=== PATIENT | female | born 1950 | race Caucasian/White ===

== ENCOUNTER 2019-06-14 13:10 | Day surgery (SDC) | payer MEDICARE, BC ==
[~2019-06-14 13:10] MED LIST: ACET-895 PO; ATOR80TA PO; FURO-149 PO; GABA300C PO; HYDR-4353 PO; HYDR-4383 PO; LACT1CAP26 PO; MELA3TAB39 PO; METO-539 PO; OMEP20CA15 PO; POTA20TA19 PO; VENL-191 PO
[2019-06-14] MEDS ORDERED: LIDOcaine 2% 5ml jelly ONE (14:03)
== END 2019-06-14 14:49 | disposition home or self-care (01) ==
LOC: WOUND CARE 13:10
PROVIDERS: ATTEND Nurse Practitioner
DX: T87.89 Other complications of amputation stump (principal); E11.621 Type 2 diabetes mellitus with foot ulcer; L97.512 Non-pressure chronic ulcer of other part of right foot with fat layer exposed; E11.69 Type 2 diabetes mellitus with other specified complication; M86.172 Other acute osteomyelitis, left ankle and foot; E11.36 Type 2 diabetes mellitus with diabetic cataract; I25.10 Atherosclerotic heart disease of native coronary artery without angina pectoris; E78.5 Hyperlipidemia, unspecified; I25.2 Old myocardial infarction; K21.9 Gastro-esophageal reflux disease without esophagitis; M19.90 Unspecified osteoarthritis, unspecified site; E11.22 Type 2 diabetes mellitus with diabetic chronic kidney disease; I12.9 Hypertensive chronic kidney disease with stage 1 through stage 4 chronic kidney disease, or unspecified chronic kidney disease; N18.3 Chronic kidney disease, stage 3 (moderate); E11.40 Type 2 diabetes mellitus with diabetic neuropathy, unspecified; F32.9 Major depressive disorder, single episode, unspecified; F17.210 Nicotine dependence, cigarettes, uncomplicated; Z79.899 Other long term (current) drug therapy; Z92.21 Personal history of antineoplastic chemotherapy; Z96.653 Presence of artificial knee joint, bilateral; Z71.6 Tobacco abuse counseling; Y83.5 Amputation of limb(s) as the cause of abnormal reaction of the patient, or of later complication, without mention of misadventure at the time of the procedure
CPT/HCPCS: 97597

== ENCOUNTER 2019-06-17 14:30 | Day surgery (SDC) | payer MEDICARE, BC | END 2019-06-17 15:33 | disposition home or self-care (01) | LOC: WOUND CARE 14:30 | PROVIDERS: ATTEND Nurse Practitioner | DX: T87.89 Other complications of amputation stump (principal); E11.621 Type 2 diabetes mellitus with foot ulcer; L97.512 Non-pressure chronic ulcer of other part of right foot with fat layer exposed; E11.69 Type 2 diabetes mellitus with other specified complication; M86.172 Other acute osteomyelitis, left ankle and foot; E11.36 Type 2 diabetes mellitus with diabetic cataract; I25.10 Atherosclerotic heart disease of native coronary artery without angina pectoris; E78.5 Hyperlipidemia, unspecified; I25.2 Old myocardial infarction; K21.9 Gastro-esophageal reflux disease without esophagitis; M19.90 Unspecified osteoarthritis, unspecified site; E11.22 Type 2 diabetes mellitus with diabetic chronic kidney disease; I12.9 Hypertensive chronic kidney disease with stage 1 through stage 4 chronic kidney disease, or unspecified chronic kidney disease; N18.3 Chronic kidney disease, stage 3 (moderate); E11.40 Type 2 diabetes mellitus with diabetic neuropathy, unspecified; F32.9 Major depressive disorder, single episode, unspecified; F17.210 Nicotine dependence, cigarettes, uncomplicated; Z79.899 Other long term (current) drug therapy; Z92.21 Personal history of antineoplastic chemotherapy; Z96.653 Presence of artificial knee joint, bilateral; Z71.6 Tobacco abuse counseling; Y83.5 Amputation of limb(s) as the cause of abnormal reaction of the patient, or of later complication, without mention of misadventure at the time of the procedure | CPT/HCPCS: 97597 ==

== ENCOUNTER 2019-06-21 14:00 | Day surgery (SDC) | payer MEDICARE, BC ==
[2019-06-21] MEDS ORDERED: LIDOcaine 2% 5ml jelly ONE (14:18)
== END 2019-06-21 14:51 | disposition home or self-care (01) ==
LOC: WOUND CARE 14:00
PROVIDERS: ATTEND Nurse Practitioner
DX: T87.89 Other complications of amputation stump (principal); E11.621 Type 2 diabetes mellitus with foot ulcer; L97.512 Non-pressure chronic ulcer of other part of right foot with fat layer exposed; E11.69 Type 2 diabetes mellitus with other specified complication; M86.172 Other acute osteomyelitis, left ankle and foot; E11.36 Type 2 diabetes mellitus with diabetic cataract; I25.10 Atherosclerotic heart disease of native coronary artery without angina pectoris; E78.5 Hyperlipidemia, unspecified; I25.2 Old myocardial infarction; K21.9 Gastro-esophageal reflux disease without esophagitis; M19.90 Unspecified osteoarthritis, unspecified site; E11.22 Type 2 diabetes mellitus with diabetic chronic kidney disease; I12.9 Hypertensive chronic kidney disease with stage 1 through stage 4 chronic kidney disease, or unspecified chronic kidney disease; N18.3 Chronic kidney disease, stage 3 (moderate); E11.40 Type 2 diabetes mellitus with diabetic neuropathy, unspecified; F32.9 Major depressive disorder, single episode, unspecified; F17.210 Nicotine dependence, cigarettes, uncomplicated; Z79.899 Other long term (current) drug therapy; Z92.21 Personal history of antineoplastic chemotherapy; Z96.653 Presence of artificial knee joint, bilateral; Z71.6 Tobacco abuse counseling; Y83.5 Amputation of limb(s) as the cause of abnormal reaction of the patient, or of later complication, without mention of misadventure at the time of the procedure
CPT/HCPCS: 97597

== ENCOUNTER 2019-06-28 13:00 | Day surgery (SDC) | payer MEDICARE, BC ==
[2019-06-28] MEDS ORDERED: LIDOcaine 2% 5ml jelly ONE (13:36)
== END 2019-06-28 14:02 | disposition home or self-care (01) ==
LOC: WOUND CARE 13:00
PROVIDERS: ATTEND Nurse Practitioner
DX: T87.89 Other complications of amputation stump (principal); E11.621 Type 2 diabetes mellitus with foot ulcer; L97.512 Non-pressure chronic ulcer of other part of right foot with fat layer exposed; E11.69 Type 2 diabetes mellitus with other specified complication; M86.172 Other acute osteomyelitis, left ankle and foot; E11.36 Type 2 diabetes mellitus with diabetic cataract; I25.10 Atherosclerotic heart disease of native coronary artery without angina pectoris; E78.5 Hyperlipidemia, unspecified; I25.2 Old myocardial infarction; K21.9 Gastro-esophageal reflux disease without esophagitis; M19.90 Unspecified osteoarthritis, unspecified site; E11.22 Type 2 diabetes mellitus with diabetic chronic kidney disease; I12.9 Hypertensive chronic kidney disease with stage 1 through stage 4 chronic kidney disease, or unspecified chronic kidney disease; N18.3 Chronic kidney disease, stage 3 (moderate); E11.40 Type 2 diabetes mellitus with diabetic neuropathy, unspecified; F32.9 Major depressive disorder, single episode, unspecified; F17.210 Nicotine dependence, cigarettes, uncomplicated; Z79.899 Other long term (current) drug therapy; Z92.21 Personal history of antineoplastic chemotherapy; Z96.653 Presence of artificial knee joint, bilateral; Z71.6 Tobacco abuse counseling; Y83.5 Amputation of limb(s) as the cause of abnormal reaction of the patient, or of later complication, without mention of misadventure at the time of the procedure
CPT/HCPCS: 97597

== ENCOUNTER 2019-07-02 13:39 | Day surgery (SDC) | payer MEDICARE, BC ==
[2019-07-02] MEDS ORDERED: LIDOcaine 2% 5ml jelly ONE (14:00)
== END 2019-07-02 14:41 | disposition home or self-care (01) ==
LOC: WOUND CARE 13:39
PROVIDERS: ATTEND Nurse Practitioner Family
DX: T87.89 Other complications of amputation stump (principal); E11.621 Type 2 diabetes mellitus with foot ulcer; L97.512 Non-pressure chronic ulcer of other part of right foot with fat layer exposed; E11.69 Type 2 diabetes mellitus with other specified complication; M86.172 Other acute osteomyelitis, left ankle and foot; E11.36 Type 2 diabetes mellitus with diabetic cataract; I25.10 Atherosclerotic heart disease of native coronary artery without angina pectoris; E78.5 Hyperlipidemia, unspecified; I25.2 Old myocardial infarction; K21.9 Gastro-esophageal reflux disease without esophagitis; M19.90 Unspecified osteoarthritis, unspecified site; E11.22 Type 2 diabetes mellitus with diabetic chronic kidney disease; I12.9 Hypertensive chronic kidney disease with stage 1 through stage 4 chronic kidney disease, or unspecified chronic kidney disease; N18.3 Chronic kidney disease, stage 3 (moderate); E11.40 Type 2 diabetes mellitus with diabetic neuropathy, unspecified; F32.9 Major depressive disorder, single episode, unspecified; F17.210 Nicotine dependence, cigarettes, uncomplicated; Z79.899 Other long term (current) drug therapy; Z92.21 Personal history of antineoplastic chemotherapy; Z96.653 Presence of artificial knee joint, bilateral; Z71.6 Tobacco abuse counseling; Y83.5 Amputation of limb(s) as the cause of abnormal reaction of the patient, or of later complication, without mention of misadventure at the time of the procedure
CPT/HCPCS: 97597

== ENCOUNTER 2019-07-10 13:05 | Day surgery (SDC) | payer MEDICARE, BC ==
[2019-07-10] MEDS ORDERED: LIDOcaine 2% 5ml jelly ONE (13:16)
== END 2019-07-10 13:44 | disposition home or self-care (01) ==
LOC: WOUND CARE 13:05
PROVIDERS: ATTEND Nurse Practitioner
DX: T87.89 Other complications of amputation stump (principal); E11.621 Type 2 diabetes mellitus with foot ulcer; L97.522 Non-pressure chronic ulcer of other part of left foot with fat layer exposed; E11.69 Type 2 diabetes mellitus with other specified complication; M86.172 Other acute osteomyelitis, left ankle and foot; E11.36 Type 2 diabetes mellitus with diabetic cataract; I25.10 Atherosclerotic heart disease of native coronary artery without angina pectoris; E78.5 Hyperlipidemia, unspecified; I25.2 Old myocardial infarction; K21.9 Gastro-esophageal reflux disease without esophagitis; M19.90 Unspecified osteoarthritis, unspecified site; E11.22 Type 2 diabetes mellitus with diabetic chronic kidney disease; I12.9 Hypertensive chronic kidney disease with stage 1 through stage 4 chronic kidney disease, or unspecified chronic kidney disease; N18.3 Chronic kidney disease, stage 3 (moderate); E11.40 Type 2 diabetes mellitus with diabetic neuropathy, unspecified; F32.9 Major depressive disorder, single episode, unspecified; F17.210 Nicotine dependence, cigarettes, uncomplicated; Z79.899 Other long term (current) drug therapy; Z92.21 Personal history of antineoplastic chemotherapy; Z96.653 Presence of artificial knee joint, bilateral; Z71.6 Tobacco abuse counseling; Y83.5 Amputation of limb(s) as the cause of abnormal reaction of the patient, or of later complication, without mention of misadventure at the time of the procedure
CPT/HCPCS: 97597

== ENCOUNTER 2019-07-17 13:05 | Day surgery (SDC) | payer MEDICARE, BC ==
[2019-07-17] MEDS ORDERED: LIDOcaine 2% 5ml jelly ONE (13:19)
== END 2019-07-17 14:12 | disposition home or self-care (01) ==
LOC: WOUND CARE 13:05
PROVIDERS: ATTEND Nurse Practitioner
DX: T87.89 Other complications of amputation stump (principal); E11.621 Type 2 diabetes mellitus with foot ulcer; L97.522 Non-pressure chronic ulcer of other part of left foot with fat layer exposed; E11.69 Type 2 diabetes mellitus with other specified complication; M86.172 Other acute osteomyelitis, left ankle and foot; E11.36 Type 2 diabetes mellitus with diabetic cataract; I25.10 Atherosclerotic heart disease of native coronary artery without angina pectoris; E78.5 Hyperlipidemia, unspecified; I25.2 Old myocardial infarction; K21.9 Gastro-esophageal reflux disease without esophagitis; M19.90 Unspecified osteoarthritis, unspecified site; E11.22 Type 2 diabetes mellitus with diabetic chronic kidney disease; I12.9 Hypertensive chronic kidney disease with stage 1 through stage 4 chronic kidney disease, or unspecified chronic kidney disease; N18.3 Chronic kidney disease, stage 3 (moderate); E11.40 Type 2 diabetes mellitus with diabetic neuropathy, unspecified; F32.9 Major depressive disorder, single episode, unspecified; F17.210 Nicotine dependence, cigarettes, uncomplicated; Z79.899 Other long term (current) drug therapy; Z92.21 Personal history of antineoplastic chemotherapy; Z96.653 Presence of artificial knee joint, bilateral; Z71.6 Tobacco abuse counseling; Y83.5 Amputation of limb(s) as the cause of abnormal reaction of the patient, or of later complication, without mention of misadventure at the time of the procedure
CPT/HCPCS: 97597

== ENCOUNTER 2019-07-24 13:22 | Outpatient (CLI) | payer MEDICARE, BC | END 2019-07-24 14:25 | disposition home or self-care (01) | LOC: WOUND CARE 13:22 | PROVIDERS: ATTEND Nurse Practitioner | DX: T87.89 Other complications of amputation stump (principal); E11.621 Type 2 diabetes mellitus with foot ulcer; L97.522 Non-pressure chronic ulcer of other part of left foot with fat layer exposed; E11.69 Type 2 diabetes mellitus with other specified complication; M86.172 Other acute osteomyelitis, left ankle and foot; E11.36 Type 2 diabetes mellitus with diabetic cataract; I25.10 Atherosclerotic heart disease of native coronary artery without angina pectoris; E78.5 Hyperlipidemia, unspecified; I25.2 Old myocardial infarction; K21.9 Gastro-esophageal reflux disease without esophagitis; M19.90 Unspecified osteoarthritis, unspecified site; E11.22 Type 2 diabetes mellitus with diabetic chronic kidney disease; I12.9 Hypertensive chronic kidney disease with stage 1 through stage 4 chronic kidney disease, or unspecified chronic kidney disease; N18.3 Chronic kidney disease, stage 3 (moderate); E11.40 Type 2 diabetes mellitus with diabetic neuropathy, unspecified; F32.9 Major depressive disorder, single episode, unspecified; F17.210 Nicotine dependence, cigarettes, uncomplicated; Z79.899 Other long term (current) drug therapy; Z92.21 Personal history of antineoplastic chemotherapy; Z96.653 Presence of artificial knee joint, bilateral; Z71.6 Tobacco abuse counseling; Y83.5 Amputation of limb(s) as the cause of abnormal reaction of the patient, or of later complication, without mention of misadventure at the time of the procedure | CPT/HCPCS: G0463 ==

== ENCOUNTER 2021-05-06 18:46 | Inpatient (IN) | payer MEDICARE, BC ==
[~2021-05-06] VITALS: Ht 154.9 cm; Wt 65.5 kg
[~2021-05-06 18:46] MED LIST changes: +POTA-208 PO; -POTA20TA19 PO
[2021-05-06] MEDS ORDERED: normal saline 1000ML IV soln IV ONE (19:50)
[2021-05-06] MEDS ORDERED: CefTRIAXone 2gm/D5W 50ml BAG 50 ML IV ONE (19:50)
--- NOTE | 2021-05-06 19:55 | NUR ---
BLOOD CULTURES TAKEN.
--- NOTE | 2021-05-06 19:56 | NUR ---
ROZINA GARCIA ASSESSING PT IN ROOM
[2021-05-06 20:02] LABS: BASOPHILS % (AUTO) 0.2 % (0-1); EOSINOPHILS % (AUTO) 0.2 % (0-6); HEMATOCRIT 40.1 % (35.0-45.0); HEMOGLOBIN 13.1 g/dl (12.0-16.0); LYMPHOCYTES # (AUTO) 0.3 X10'3 (1.1-4.8); LYMPHOCYTES % (AUTO) 2.3 % (21-51); MEAN CORPUSCULAR HEMOGLOBIN 28.6 PG (27.0-31.0); MEAN CORPUSCULAR HGB CONC 32.8 g/dL (33.0-36.5); MEAN CORPUSCULAR VOLUME 87.2 FL (78-98); MEAN PLATELET VOLUME 8.6 FL (7.4-10.4); MONOCYTES # (AUTO) 0.8 X10'3 (0-0.9); MONOCYTES % (AUTO) 5.3 % (2-12); NEUTROPHILS # (AUTO) 14.1 X10'3 (1.8-7.7); PLATELET COUNT 254 X10'3 (140-440); RED CELL DISTRIBUTION WIDTH 15.4 % (11.5-14.5); WHITE BLOOD COUNT 15.3 X10'3 (4.5-11.0)
[2021-05-06 20:20] LABS: ALANINE AMINOTRANSFERASE 28 U/L (12-78); ALBUMIN 3.5 G/DL (3.4-5.0); ALKALINE PHOSPHATASE 68 IU/L (46-116); ANION GAP 11 (8-16); ASPARTATE AMINO TRANSFERASE 23 U/L (10-37); BILIRUBIN,TOTAL 0.3 MG/DL (0.1-1.0); BLOOD UREA NITROGEN 28 MG/DL (7-18); BUN/CREATININE RATIO 27.2 (6.6-38.0); CALCIUM 8.8 MG/DL (8.5-10.1); CHLORIDE 101 MMOL/L (99-107); CREATININE 1.03 MG/DL (0.40-0.90); GLUCOSE 116 MG/DL (70-104); POTASSIUM 4.1 MMOL/L (3.5-5.1); SODIUM 136 MMOL/L (135-145); TOTAL CARBON DIOXIDE 23.7 MMOL/L (24-32); eGFR 53 ML/MIN
--- NOTE | 2021-05-06 20:52 | NUR ---
FOUND NICOTINE PATCH ON RIGHT SHOULDER. PT STATES SHE PUT IT ON HERSELF PRIOR TO ARRIVAL.
[2021-05-06 21:02] LABS: CLARITY,URINE SLIGHTLY CLOUDY (Clear); COLOR,URINE YELLOW (Yellow); GLUCOSE, URINE NEGATIVE (Neg); KETONES,URINE NEGATIVE (Neg); LEUKOCYTE ESTERASE ,URINE NEGATIVE (Neg); NITRITES, URINE POSITIVE (Neg); OCCULT BLOOD,URINE NEGATIVE (Neg); PH,URINE 5.5 (4.8-8.0); PROTEIN,URINE TRACE mg/dl (Neg); UROBILINOGEN,URINE 0.2 E.U/dL (0.2-1.0)
[2021-05-06 21:10] LABS: UA COLLECTION TYPE STRAIGHT CATH
[2021-05-06 21:12] LABS: BACTERIA,URINE 3+ /HPF (Neg); FINE GRANULAR CAST 0-3 /LPF (NEGATIVE); MUCUS STRANDS NONE SEEN /LPF (Neg); RBC,URINE 0-2 /HPF (0-2); SQUAMOUS EPITHELIAL CELL,UR FEW /LPF (FEW)
[2021-05-06] MEDS ORDERED: vancomycin/NS 1 GM ADD-VANTAGE 250 ML IV ONE (22:00)
[2021-05-06] MEDS ORDERED: potassium CL 10mEq/100ml bag 100 ML IV PRN (22:25)
[2021-05-06] MEDS ORDERED: magnesium Cl slow-release 64mg tablet PO PRN (22:25)
[2021-05-06] MEDS ORDERED: ondansetron/PF 4mg/2ml inj IV PRN (22:25)
[2021-05-06] MEDS ORDERED: potassium Cl 20 mEq SR tablet PO PRN (22:25)
[2021-05-06] MEDS ORDERED: magnesium 4gm in 100ml NS 100 ML IV PRN (22:25)
[2021-05-06] MEDS ORDERED: magnesium 2GM in 50ml NS 50 ML IV PRN (22:25)
--- NOTE | 2021-05-06 23:14 | NUR ---
Pt observed resting comfortably, vss; see flow chart; medicated per mar; warm blankets provided, son at bs. will cont to monitor.
[2021-05-06] MEDS: normal saline 1000ml 1,000 ML IV SCH (23:22)
[2021-05-06 23:39] LABS: MAGNESIUM 1.1 MG/DL (1.5-2.4); POTASSIUM 3.6 MMOL/L (3.5-5.1)
[2021-05-07 00:20] VITALS: BP 155/79
[2021-05-07] MEDS: acetaminophen 325mg tablet PO PRN (00:22)
[2021-05-07 02:00] VITALS: BP 107/56
[2021-05-07] MEDS: normal saline 1000ml 1,000 ML IV SCH ×2 (03:36→19:05)
[2021-05-07 06:33] LABS: BASOPHILS % (AUTO) 0.1 % (0-1); EOSINOPHILS % (AUTO) 0 % (0-6); HEMATOCRIT 35.4 % (35.0-45.0); HEMOGLOBIN 11.5 g/dl (12.0-16.0); LYMPHOCYTES # (AUTO) 0.4 X10'3 (1.1-4.8); LYMPHOCYTES % (AUTO) 2.9 % (21-51); MEAN CORPUSCULAR HEMOGLOBIN 28.2 PG (27.0-31.0); MEAN CORPUSCULAR HGB CONC 32.4 g/dL (33.0-36.5); MEAN PLATELET VOLUME 8.6 FL (7.4-10.4); MONOCYTES # (AUTO) 0.5 X10'3 (0-0.9); MONOCYTES % (AUTO) 4.1 % (2-12); NEUTROPHILS # (AUTO) 12.2 X10'3 (1.8-7.7); NEUTROPHILS % (AUTO) 92.9 % (42-75); PLATELET COUNT 207 X10'3 (140-440); RED BLOOD COUNT 4.07 X10'6 (4.20-5.60); RED CELL DISTRIBUTION WIDTH 15.7 % (11.5-14.5); WHITE BLOOD COUNT 13.2 X10'3 (4.5-11.0)
--- NOTE | 2021-05-07 06:42 | NUR ---
Problems reprioritized. Patient report given, questions answered & plan of care reviewed with MERLENE MURDOCK.
[2021-05-07 06:43] LABS: ALBUMIN 2.7 G/DL (3.4-5.0); ANION GAP 8 (8-16); BLOOD UREA NITROGEN 19 MG/DL (7-18); CHLORIDE 103 MMOL/L (99-107); CREATININE 0.95 MG/DL (0.40-0.90); GLUCOSE 105 MG/DL (70-104); MAGNESIUM 1.5 MG/DL (1.5-2.4); POTASSIUM 3.4 MMOL/L (3.5-5.1); SODIUM 139 MMOL/L (135-145); TOTAL CARBON DIOXIDE 28.4 MMOL/L (24-32); eGFR 58 ML/MIN
[2021-05-07 07:00] VITALS: BP 118/59
[2021-05-07] MEDS: K and/or MAG REPLACEMENT MC SCH ×2 (08:00→20:11)
[2021-05-07] MEDS ORDERED: IBUP-1986 PO (08:01)
[2021-05-07] MEDS ORDERED: BUPR100T7 PO (08:01)
[2021-05-07] MEDS ORDERED: FENO145T25 PO (08:01)
[2021-05-07] MEDS ORDERED: VENL150C58 PO (08:01)
[2021-05-07] MEDS: CefTRIAXone/D5W-Rocephin 1gm 50 ML IV SCH (10:22)
[2021-05-07 11:00] VITALS: BP 121/63
[2021-05-07] MEDS ORDERED: iohexol 300mg/ml 100ml inj. ONE (12:32)
[2021-05-07 16:00] VITALS: BP 113/59
[2021-05-07 18:00] VITALS: BP 108/70
[2021-05-07] MEDS: potassium Cl 20 mEq SR tablet PO PRN (20:10)
[2021-05-08 02:00] VITALS: BP 124/83
[2021-05-08 06:00] VITALS: BP 148/90
[2021-05-08 06:58] LABS: BASOPHILS % (AUTO) 0.5 % (0-1); EOSINOPHILS # (AUTO) 0.3 X10'3 (0-0.9); EOSINOPHILS % (AUTO) 6.2 % (0-6); HEMATOCRIT 35.7 % (35.0-45.0); HEMOGLOBIN 11.7 g/dl (12.0-16.0); LYMPHOCYTES # (AUTO) 0.3 X10'3 (1.1-4.8); LYMPHOCYTES % (AUTO) 6.1 % (21-51); MEAN CORPUSCULAR HEMOGLOBIN 28.5 PG (27.0-31.0); MEAN CORPUSCULAR HGB CONC 32.7 g/dL (33.0-36.5); MEAN CORPUSCULAR VOLUME 86.9 FL (78-98); MEAN PLATELET VOLUME 8.8 FL (7.4-10.4); MONOCYTES # (AUTO) 0.3 X10'3 (0-0.9); NEUTROPHILS # (AUTO) 3.3 X10'3 (1.8-7.7); NEUTROPHILS % (AUTO) 79.2 % (42-75); PLATELET COUNT 186 X10'3 (140-440); RED CELL DISTRIBUTION WIDTH 15.5 % (11.5-14.5); WHITE BLOOD COUNT 4.1 X10'3 (4.5-11.0)
[2021-05-08 07:08] LABS: ALBUMIN 2.5 G/DL (3.4-5.0); ANION GAP 7 (8-16); BLOOD UREA NITROGEN 13 MG/DL (7-18); BUN/CREATININE RATIO 18.1 (6.6-38.0); CHLORIDE 107 MMOL/L (99-107); CREATININE 0.72 MG/DL (0.40-0.90); GLUCOSE 107 MG/DL (70-104); MAGNESIUM 1.5 MG/DL (1.5-2.4); POTASSIUM 3.4 MMOL/L (3.5-5.1); SODIUM 139 MMOL/L (135-145); TOTAL CARBON DIOXIDE 25.1 MMOL/L (24-32); eGFR 80 ML/MIN
[2021-05-08] MEDS: normal saline 1000ml 1,000 ML IV SCH ×2 (07:35→19:28)
[2021-05-08] MEDS: CefTRIAXone/D5W-Rocephin 1gm 50 ML IV SCH (07:43)
[2021-05-08] MEDS: potassium Cl 20 mEq SR tablet PO PRN ×3 (07:43→19:27)
[2021-05-08] MEDS: acetaminophen 325mg tablet PO PRN (07:44)
[2021-05-08] MEDS: K and/or MAG REPLACEMENT MC SCH ×2 (08:00→19:27)
[2021-05-08 11:00] VITALS: BP 125/68
[2021-05-08] MEDS ORDERED: VANCOMYCIN 1GM/200ML IVPB 200 ML IV SCH ×2 (11:00→23:00)
[2021-05-08] MEDS: nystatin 15 GM powder TP SCH (13:02)
[2021-05-08 15:00] VITALS: BP 149/85
--- NOTE | 2021-05-08 18:14 | NUR ---
Problems reprioritized. Patient report given, questions answered & plan of care reviewed with Viky MURDOCK.
[2021-05-08 22:00] VITALS: BP 152/86
[2021-05-09] MEDS ORDERED: cloNIDine 0.1 mg tablet PO PRN (04:40)
[2021-05-09] MEDS: potassium Cl 20 mEq SR tablet PO PRN (05:16)
[2021-05-09 06:23] LABS: EOSINOPHILS # (AUTO) 0.4 X10'3 (0-0.9); EOSINOPHILS % (AUTO) 10.1 % (0-6); HEMATOCRIT 38.5 % (35.0-45.0); HEMOGLOBIN 12.7 g/dl (12.0-16.0); LYMPHOCYTES # (AUTO) 0.5 X10'3 (1.1-4.8); LYMPHOCYTES % (AUTO) 13.4 % (21-51); MEAN CORPUSCULAR HEMOGLOBIN 28.6 PG (27.0-31.0); MEAN CORPUSCULAR HGB CONC 33.1 g/dL (33.0-36.5); MEAN CORPUSCULAR VOLUME 86.5 FL (78-98); MEAN PLATELET VOLUME 8.5 FL (7.4-10.4); MONOCYTES # (AUTO) 0.4 X10'3 (0-0.9); MONOCYTES % (AUTO) 11.3 % (2-12); NEUTROPHILS # (AUTO) 2.4 X10'3 (1.8-7.7); NEUTROPHILS % (AUTO) 64.2 % (42-75); PLATELET COUNT 203 X10'3 (140-440); RED BLOOD COUNT 4.46 X10'6 (4.20-5.60); RED CELL DISTRIBUTION WIDTH 15.9 % (11.5-14.5); WHITE BLOOD COUNT 3.7 X10'3 (4.5-11.0)
--- NOTE | 2021-05-09 06:49 | NUR ---
Problems reprioritized. Patient report given, questions answered & plan of care reviewed with Ivana MURDOCK.
[2021-05-09] MEDS: nystatin 15 GM powder TP SCH (07:45)
[2021-05-09] MEDS: K and/or MAG REPLACEMENT MC SCH (08:00)
[2021-05-09] MEDS ORDERED: metoprolol succinate 25mg (24-HOUR) SR. Tablet PO SCH (08:00)
[2021-05-09] MEDS ORDERED: amox tr/potassium clavulanate 875/125mg TAB PO ONE (08:15)
[2021-05-09 08:32] LABS: ALBUMIN 2.8 G/DL (3.4-5.0); BLOOD UREA NITROGEN 11 MG/DL (7-18); BUN/CREATININE RATIO 17.2 (6.6-38.0); CALCIUM 8.3 MG/DL (8.5-10.1); CREATININE 0.64 MG/DL (0.40-0.90); GLUCOSE 101 MG/DL (70-104); MAGNESIUM 1.6 MG/DL (1.5-2.4); eGFR > 90 ML/MIN
[2021-05-09] MEDS: normal saline 1000ml 1,000 ML IV SCH (08:35)
[2021-05-09] MEDS ORDERED: AMOX-580 PO ×2 (09:26)
[2021-05-09] MEDS ORDERED: AMPI500C65 PO (09:40)
--- NOTE | 2021-05-09 11:50 | NUR ---
Discharged patient home, in stable condition, accompanied by . Discharge instructions provided and patient verbalized understanding.
[2021-05-09 12:18] LABS: POTASSIUM 3.9 MMOL/L (3.3-5.1)
[2021-05-09] MEDS ORDERED: VANCOMYCIN LEVEL IV ONE (22:30)
== END 2021-05-09 11:52 | disposition home or self-care (01) | DRG 871 ==
LOC: ER 18:46 → ED HOLD 22:25 → PCU 3S 05-07 00:14
PROVIDERS: ADMIT Internal Medicine; ATTEND Family Medicine
PROC: BW281ZZ Computerized Tomography (CT Scan) of Head using Low Osmolar Contrast (ICD-10-PCS; principal; 2021-05-07)
DX: A41.81 Sepsis due to Enterococcus (principal); G93.41 Metabolic encephalopathy; J18.9 Pneumonia, unspecified organism; N39.0 Urinary tract infection, site not specified; N17.9 Acute kidney failure, unspecified; C91.11 Chronic lymphocytic leukemia of B-cell type in remission; Z20.822 Contact with and (suspected) exposure to COVID-19; R31.9 Hematuria, unspecified; E78.5 Hyperlipidemia, unspecified; F32.A Depression, unspecified; K21.9 Gastro-esophageal reflux disease without esophagitis; E83.42 Hypomagnesemia; E87.6 Hypokalemia; F17.200 Nicotine dependence, unspecified, uncomplicated; I10 Essential (primary) hypertension; Z85.72 Personal history of non-Hodgkin lymphomas; Z86.14 Personal history of Methicillin resistant Staphylococcus aureus infection; Z88.8 Allergy status to other drugs, medicaments and biological substances; Z79.899 Other long term (current) drug therapy
CPT/HCPCS: 36415; 70470; 71045; 80048; 80053; 81001; 83605; 83735; 84132; 84145; 85025; 87040; 87077; 87081; 87088; 87186; 87635; 99285; C9803; G0378; J0696; J3370; J7030; Q9967

== ENCOUNTER 2022-10-20 13:58 | Inpatient (IN) | payer MEDICARE, BC ==
[~2022-10-20] VITALS: Ht 160 cm; Wt 75.0 kg
[~2022-10-20 13:58] MED LIST changes: -ACET-895 PO; +ATOR-2 PO; -ATOR80TA PO; +BUPR100T15 PO; +CEFD300C21 PO; +FENO145T25 PO; -FURO-149 PO; -GABA300C PO; -HYDR-4353 PO; -HYDR-4383 PO; -LACT1CAP26 PO; +LEVO-65 PO; -MELA3TAB39 PO; -OMEP20CA15 PO; -POTA-208 PO; -VENL-191 PO; +VENL150C58 PO
[2022-10-20] MEDS ORDERED: normal saline 1000ML IV soln IV ONE (14:20)
[2022-10-20] MEDS ORDERED: CefTRIAXone 2gm/D5W 50ml BAG 50 ML IV ONE (14:20)
[2022-10-20 15:00] LABS: BASOPHILS % (AUTO) 0.5 % (0-1); EOSINOPHILS % (AUTO) 0.6 % (0-6); HEMATOCRIT 41.9 % (35.0-45.0); HEMOGLOBIN 13.8 g/dl (12.0-16.0); LYMPHOCYTES # (AUTO) 0.7 X10'3 (1.1-4.8); LYMPHOCYTES % (AUTO) 9.6 % (21-51); MEAN CORPUSCULAR HEMOGLOBIN 28.3 PG (27.0-31.0); MEAN CORPUSCULAR VOLUME 85.7 FL (78-98); MEAN PLATELET VOLUME 8.6 FL (7.4-10.4); MONOCYTES # (AUTO) 0.6 X10'3 (0-0.9); MONOCYTES % (AUTO) 7.4 % (2-12); NEUTROPHILS # (AUTO) 6.4 X10'3 (1.8-7.7); NEUTROPHILS % (AUTO) 81.9 % (42-75); PLATELET COUNT 201 X10'3 (140-440); RED BLOOD COUNT 4.89 X10'6 (4.20-5.60); RED CELL DISTRIBUTION WIDTH 16.9 % (11.5-14.5); WHITE BLOOD COUNT 7.8 X10'3 (4.5-11.0)
[2022-10-20 15:22] LABS: ALANINE AMINOTRANSFERASE 20 U/L (12-78); ALBUMIN 3.7 G/DL (3.4-5.0); ALBUMIN/GLOBULIN RATIO 1.2 (1.1-1.5); ALKALINE PHOSPHATASE 109 IU/L (46-116); ANION GAP 14 (8-16); ASPARTATE AMINO TRANSFERASE 26 U/L (10-37); BILIRUBIN,TOTAL 0.6 MG/DL (0.1-1.0); BLOOD UREA NITROGEN 21 MG/DL (7-18); BUN/CREATININE RATIO 29.6 (10.0-20.0); CALCIUM 9.3 MG/DL (8.5-10.1); CHLORIDE 106 MMOL/L (99-107); CREATININE 0.71 MG/DL (0.40-0.90); GLUCOSE 114 MG/DL (70-104); MAGNESIUM 1.7 MG/DL (1.5-2.4); POTASSIUM 3.7 MMOL/L (3.5-5.1); SODIUM 143 MMOL/L (135-145); TOTAL CARBON DIOXIDE 23.1 MMOL/L (24-32); TOTAL PROTEIN 6.9 G/DL (6.4-8.2); eCRCL 59 ML/MIN; eGFR 81 ML/MIN
[2022-10-20] MEDS ORDERED: CefTRIAXone/D5W-Rocephin 1gm 50 ML IV ONE (16:10)
[2022-10-20 16:28] LABS: BILIRUBIN,URINE NEGATIVE (Neg); CLARITY,URINE CLOUDY (Clear); COLOR,URINE YELLOW (Yellow); GLUCOSE, URINE NEGATIVE (Neg); KETONES,URINE TRACE mg/dl (Neg); LEUKOCYTE ESTERASE ,URINE NEGATIVE (Neg); NITRITES, URINE POSITIVE (Neg); OCCULT BLOOD,URINE SMALL (Neg); PROTEIN,URINE >=300 mg/dl (Neg); UROBILINOGEN,URINE 0.2 E.U/dL (0.2-1.0)
[2022-10-20 16:30] LABS: UA COLLECTION TYPE FOLEY CATH
[2022-10-20 16:35] LABS: BACTERIA,URINE 4+ /HPF (Neg); SQUAMOUS EPITHELIAL CELL,UR FEW /LPF (FEW)
[2022-10-20 16:36] LABS: RBC,URINE 0-2 /HPF (0-2); WBC CLUMPS,URINE FEW /HPF (NEGATIVE)
[2022-10-20] MEDS ORDERED: metoprolol tartrate 50mg tablet PO ONE (16:40)
[2022-10-20] MEDS ORDERED: ondansetron/PF 4mg/2ml inj IV PRN (16:45)
[2022-10-20] MEDS ORDERED: potassium Cl 20 mEq SR tablet PO PRN ×2 (16:45)
[2022-10-20] MEDS ORDERED: magnesium 4gm in 100ml NS 100 ML IV PRN (16:45)
[2022-10-20] MEDS ORDERED: potassium Cl 40MEQ/1/2NS 520ml 520 ML IV PRN (16:45)
[2022-10-20] MEDS ORDERED: acetaminophen 325mg tablet PO PRN (16:45)
[2022-10-20] MEDS ORDERED: magnesium hydroxide 30ml (MOM) UD suspension PO PRN (16:45)
[2022-10-20] MEDS ORDERED: magnesium 2GM in 50ml NS 50 ML IV PRN (16:45)
[2022-10-20] MEDS ORDERED: mag hydrox/Alum hydrox/simeth 30ml oral suspension PO PRN (16:45)
[2022-10-20] MEDS ORDERED: magnesium Cl slow-release 64mg tablet PO PRN (16:45)
[2022-10-20] MEDS ORDERED: lisinopril 10 MG tablet PO ONE (16:50)
--- NOTE | 2022-10-20 18:30 | NUR ---
ASSUMED CARE FROM COLLETTE APONTE. PT HAS DOW IN PLACE FROM PRIOR NURSE. DOW ORDER OBTAINED AND PLACED FROM DR HUITRON.
[2022-10-20] MEDS: normal saline 1000ml 1,000 ML IV SCH (19:33)
[2022-10-20] MEDS: docusate sod 100mg capsule PO SCH (19:59)
--- NOTE | 2022-10-20 20:02 | NUR ---
paged dr manzano regarding continued high bp after po bp medications. awaiting call back.
--- NOTE | 2022-10-20 20:09 | NUR ---
recieved telephone orders from dr manzano for clonidine 0.2mg po once and hydralazine 10mg IV q4 PRN for systolic over 160. per dr, call in 1 hr if bp has not lowered.
[2022-10-20] MEDS ORDERED: cloNIDine 0.1 mg tablet PO SCH (20:10)
[2022-10-20] MEDS ORDERED: cloNIDine 0.1 mg tablet PO ONE (20:10)
[2022-10-20] MEDS: enoxaparin 40mg/0.4ml syringe SQ SCH (21:09)
[2022-10-20] MEDS: hydrALAZINE 20mg/ml inj. IV PRN (21:09)
--- NOTE | 2022-10-20 21:48 | NUR ---
PT CONTINIES TO HOLD DOW IN HAND AND PICK AT LEG SECUREMENT DEVICE. PLACED PT IN SCRUB BOTTOMS TO TRY TO DETER HER FROM PICKING AT CATHETER. PT REPOSITIONED IN BED, NO COMPLAINTS AT THIS TIME.
--- NOTE | 2022-10-21 01:37 | NUR ---
BP STILL HIGH, ADMINISTERED PRN HYDRALAZINE 10 MG
[2022-10-21] MEDS: hydrALAZINE 20mg/ml inj. IV PRN ×2 (01:38→14:49)
[2022-10-21 05:45] LABS: BASOPHILS % (AUTO) 0.2 % (0-1); EOSINOPHILS % (AUTO) 0.1 % (0-6); HEMATOCRIT 43.1 % (35.0-45.0); HEMOGLOBIN 14.2 g/dl (12.0-16.0); LYMPHOCYTES # (AUTO) 0.7 X10'3 (1.1-4.8); LYMPHOCYTES % (AUTO) 7.8 % (21-51); MEAN CORPUSCULAR HGB CONC 33.1 g/dL (33.0-36.5); MEAN CORPUSCULAR VOLUME 84.6 FL (78-98); MEAN PLATELET VOLUME 8.5 FL (7.4-10.4); MONOCYTES # (AUTO) 0.7 X10'3 (0-0.9); MONOCYTES % (AUTO) 7.8 % (2-12); NEUTROPHILS # (AUTO) 7.8 X10'3 (1.8-7.7); NEUTROPHILS % (AUTO) 84.1 % (42-75); PLATELET COUNT 215 X10'3 (140-440); RED BLOOD COUNT 5.09 X10'6 (4.20-5.60); RED CELL DISTRIBUTION WIDTH 16.5 % (11.5-14.5); WHITE BLOOD COUNT 9.3 X10'3 (4.5-11.0)
[2022-10-21] MEDS: normal saline 1000ml 1,000 ML IV SCH ×2 (06:05→19:25)
[2022-10-21 07:39] LABS: ALANINE AMINOTRANSFERASE 21 U/L (12-78); ALBUMIN 3.4 G/DL (3.4-5.0); ALKALINE PHOSPHATASE 109 IU/L (46-116); ANION GAP 17 (8-16); ASPARTATE AMINO TRANSFERASE 36 U/L (10-37); BILIRUBIN,TOTAL 0.6 MG/DL (0.1-1.0); BLOOD UREA NITROGEN 17 MG/DL (7-18); BUN/CREATININE RATIO 25.8 (10.0-20.0); CALCIUM 8.7 MG/DL (8.5-10.1); CHLORIDE 105 MMOL/L (99-107); CREATININE 0.66 MG/DL (0.40-0.90); GLUCOSE 123 MG/DL (70-104); SODIUM 142 MMOL/L (135-145); TOTAL CARBON DIOXIDE 19.6 MMOL/L (24-32); TOTAL PROTEIN 6.7 G/DL (6.4-8.2); eCRCL 64 ML/MIN; eGFR 88 ML/MIN
[2022-10-21 07:53] LABS: POTASSIUM 2.9 MMOL/L (3.5-5.1)
[2022-10-21] MEDS: CefTRIAXone 2gm/D5W 50ml BAG 50 ML IV SCH (08:13)
[2022-10-21] MEDS: docusate sod 100mg capsule PO SCH (08:13)
[2022-10-21] MEDS ORDERED: potassium Cl 40MEQ/1/2NS 520ml 520 ML IV ONE ×2 (08:30→12:35)
[2022-10-21 11:40] VITALS: BP 145/98; PULSE 108; RESP 14; TEMP 97.8; O2SAT 94
[2022-10-21] MEDS ORDERED: VENL75CA61 PO (11:42)
[2022-10-21] MEDS ORDERED: AMLO1CAP5 PO (11:42)
[2022-10-21] MEDS ORDERED: EZET10TA48 PO (11:42)
[2022-10-21 14:00] VITALS: BP 192/106; PULSE 123; RESP 16; TEMP 98.4; O2SAT 95
[2022-10-21] MEDS: venlafaxine 25mg tablet PO SCH ×2 (15:45→19:50)
[2022-10-21 16:00] VITALS: BP 156/92; PULSE 104
[2022-10-21 18:00] VITALS: BP 141/97; PULSE 79; RESP 25; TEMP 97.8; O2SAT 95
--- NOTE | 2022-10-21 18:30 | NUR ---
Patient in room [facility] 4009. I have received report from COLLETTE BENOIT and had the opportunity to ask questions and assume patient care.
[2022-10-21] MEDS: enoxaparin 40mg/0.4ml syringe SQ SCH (19:49)
[2022-10-21] MEDS: buPROPion SR 100mg tab PO SCH (19:50)
[2022-10-21 22:00] VITALS: BP 125/50; PULSE 122; RESP 16; TEMP 97.8; O2SAT 94
[2022-10-22] MEDS: normal saline 1000ml 1,000 ML IV SCH ×3 (04:47→23:51)
[2022-10-22 06:00] VITALS: BP 150/72; PULSE 80; RESP 16; TEMP 98; O2SAT 97
--- NOTE | 2022-10-22 06:40 | NUR ---
Problems reprioritized. Patient report given, questions answered & plan of care reviewed with COLLETTE DALTON.
[2022-10-22 06:41] VITALS: RESP 16; O2SAT 97
[2022-10-22 06:42] LABS: BASOPHILS % (AUTO) 0.3 % (0-1); EOSINOPHILS # (AUTO) 0.1 X10'3 (0-0.9); EOSINOPHILS % (AUTO) 0.8 % (0-6); HEMATOCRIT 38.8 % (35.0-45.0); HEMOGLOBIN 12.9 g/dl (12.0-16.0); LYMPHOCYTES # (AUTO) 0.8 X10'3 (1.1-4.8); LYMPHOCYTES % (AUTO) 10.3 % (21-51); MEAN CORPUSCULAR HGB CONC 33.3 g/dL (33.0-36.5); MEAN PLATELET VOLUME 8.3 FL (7.4-10.4); MONOCYTES # (AUTO) 0.7 X10'3 (0-0.9); MONOCYTES % (AUTO) 8.7 % (2-12); NEUTROPHILS # (AUTO) 6.1 X10'3 (1.8-7.7); NEUTROPHILS % (AUTO) 79.9 % (42-75); PLATELET COUNT 189 X10'3 (140-440); RED BLOOD COUNT 4.62 X10'6 (4.20-5.60); RED CELL DISTRIBUTION WIDTH 16.2 % (11.5-14.5); WHITE BLOOD COUNT 7.6 X10'3 (4.5-11.0)
[2022-10-22 07:03] LABS: ALANINE AMINOTRANSFERASE 23 U/L (12-78); ALBUMIN 2.9 G/DL (3.4-5.0); ALBUMIN/GLOBULIN RATIO 0.9 (1.1-1.5); ALKALINE PHOSPHATASE 95 IU/L (46-116); ANION GAP 12 (8-16); ASPARTATE AMINO TRANSFERASE 47 U/L (10-37); BILIRUBIN,TOTAL 0.6 MG/DL (0.1-1.0); BLOOD UREA NITROGEN 19 MG/DL (7-18); CALCIUM 8.3 MG/DL (8.5-10.1); CHLORIDE 106 MMOL/L (99-107); CREATININE 0.76 MG/DL (0.40-0.90); GLUCOSE 95 MG/DL (70-104); POTASSIUM 3.6 MMOL/L (3.5-5.1); SODIUM 137 MMOL/L (135-145); TOTAL CARBON DIOXIDE 19.2 MMOL/L (24-32); eCRCL 55 ML/MIN; eGFR 75 ML/MIN
[2022-10-22] MEDS ORDERED: atorvastatin 20mg tablet PO SCH (08:00)
[2022-10-22] MEDS ORDERED: PEG 3350/Na sulf,bicarb,Cl/KCl oral sol 4 liter bottle PO ONE (08:25)
[2022-10-22] MEDS: buPROPion SR 100mg tab PO SCH ×2 (08:57→19:36)
[2022-10-22] MEDS: venlafaxine 25mg tablet PO SCH ×3 (08:57→19:36)
[2022-10-22] MEDS: lisinopril 10 MG tablet PO SCH (08:57)
[2022-10-22] MEDS: atorvastatin 20mg tablet PO SCH (08:58)
[2022-10-22] MEDS: amLODIPine 5mg tablet PO SCH (08:58)
[2022-10-22] MEDS: CefTRIAXone 2gm/D5W 50ml BAG 50 ML IV SCH (09:00)
[2022-10-22] MEDS: metoprolol succinate 25mg (24-HOUR) SR. Tablet PO SCH (09:00)
[2022-10-22 10:00] VITALS: BP 143/64; PULSE 116; RESP 20; TEMP 98.1; O2SAT 96
--- NOTE | 2022-10-22 17:11 | NUR ---
current bladder scan 395ml, pt tends to retain 480ml and then releases some which decreases urine volume to under 450ml. At one point patient had 480 in bladder myself and 2 other RN's tried to straight cath without success due to difficulty finding placement of bladder but as we were attempting patient voided half of bladder out at that time and we stopped trying to straight cath.
[2022-10-22 18:00] VITALS: BP 135/76; PULSE 92; RESP 18; TEMP 98.5; O2SAT 95
--- NOTE | 2022-10-22 18:18 | NUR ---
Report given to Gracie RN, patient resting comfortably with at bedside. Gracie will bladder scan and monitor retention
[2022-10-22] MEDS: enoxaparin 40mg/0.4ml syringe SQ SCH (19:37)
[2022-10-22 20:00] VITALS: RESP 18; O2SAT 95
--- NOTE | 2022-10-22 20:00 | NUR ---
Bladder scan pt after an incontinent episode, for 389ml. Pt unable to empty bladder completely. Addendum: 10/23/22 at 0100 by Gracie Hobson RN Amended: Links added.
--- NOTE | 2022-10-22 21:50 | NUR ---
Bladder scan after another inc void. Scan was 478ml pt was straight cathed per MD orders. Approx 400ml of urine drained. Addendum: 10/23/22 at 0100 by Gracie Hobson RN Amended: Links added.
[2022-10-22 22:00] VITALS: BP 135/75; PULSE 93; RESP 18; TEMP 98.2; O2SAT 92
[2022-10-23] MEDS: acetaminophen 325mg tablet PO PRN ×2 (01:50→20:39)
--- NOTE | 2022-10-23 05:00 | NUR ---
Bladder scan for 177ml, no intervention at this time.
--- NOTE | 2022-10-23 06:30 | NUR ---
Problems reprioritized. Patient report given, questions answered & plan of care reviewed with Holly. Addendum: 10/23/22 at 0630 by Gracie Hobson RN Amended: Links added.
[2022-10-23 07:11] LABS: BASOPHILS % (AUTO) 0.4 % (0-1); EOSINOPHILS % (AUTO) 0.3 % (0-6); HEMATOCRIT 33.4 % (35.0-45.0); LYMPHOCYTES # (AUTO) 0.9 X10'3 (1.1-4.8); LYMPHOCYTES % (AUTO) 13.1 % (21-51); MEAN CORPUSCULAR HEMOGLOBIN 27.9 PG (27.0-31.0); MEAN CORPUSCULAR VOLUME 84.5 FL (78-98); MEAN PLATELET VOLUME 8.9 FL (7.4-10.4); MONOCYTES # (AUTO) 0.7 X10'3 (0-0.9); MONOCYTES % (AUTO) 10.9 % (2-12); NEUTROPHILS # (AUTO) 4.9 X10'3 (1.8-7.7); NEUTROPHILS % (AUTO) 75.3 % (42-75); PLATELET COUNT 167 X10'3 (140-440); RED BLOOD COUNT 3.95 X10'6 (4.20-5.60); RED CELL DISTRIBUTION WIDTH 16.3 % (11.5-14.5); WHITE BLOOD COUNT 6.5 X10'3 (4.5-11.0)
[2022-10-23] MEDS: CefTRIAXone 2gm/D5W 50ml BAG 50 ML IV SCH (07:17)
[2022-10-23 07:41] LABS: ALANINE AMINOTRANSFERASE 19 U/L (12-78); ALBUMIN 2.5 G/DL (3.4-5.0); ALBUMIN/GLOBULIN RATIO 0.9 (1.1-1.5); ALKALINE PHOSPHATASE 75 IU/L (46-116); ANION GAP 12 (8-16); ASPARTATE AMINO TRANSFERASE 30 U/L (10-37); BILIRUBIN,TOTAL 0.5 MG/DL (0.1-1.0); BLOOD UREA NITROGEN 18 MG/DL (7-18); CALCIUM 8.1 MG/DL (8.5-10.1); CHLORIDE 107 MMOL/L (99-107); CREATININE 0.72 MG/DL (0.40-0.90); GLUCOSE 93 MG/DL (70-104); POTASSIUM 3.3 MMOL/L (3.5-5.1); SODIUM 139 MMOL/L (135-145); TOTAL CARBON DIOXIDE 20.3 MMOL/L (24-32); TOTAL PROTEIN 5.4 G/DL (6.4-8.2); eCRCL 58 ML/MIN; eGFR 80 ML/MIN
[2022-10-23] MEDS: buPROPion SR 100mg tab PO SCH ×2 (08:50→20:17)
[2022-10-23] MEDS: atorvastatin 20mg tablet PO SCH (08:50)
[2022-10-23] MEDS: amLODIPine 5mg tablet PO SCH (08:50)
[2022-10-23] MEDS: venlafaxine 25mg tablet PO SCH ×3 (08:50→20:17)
[2022-10-23] MEDS: metoprolol succinate 25mg (24-HOUR) SR. Tablet PO SCH (08:51)
[2022-10-23] MEDS: lisinopril 10 MG tablet PO SCH (08:52)
[2022-10-23 18:00] VITALS: BP 132/77; PULSE 84; RESP 20; TEMP 99.3; O2SAT 91
--- NOTE | 2022-10-23 18:30 | NUR ---
Patient in room [facility] 4009. I have received report from Holly SUTTON and had the opportunity to ask questions and assume patient care.
[2022-10-23 19:50] VITALS: RESP 20; O2SAT 91
[2022-10-23] MEDS: enoxaparin 40mg/0.4ml syringe SQ SCH (20:19)
[2022-10-23 22:00] VITALS: BP 138/69; PULSE 97; RESP 20; TEMP 98.6; O2SAT 92
--- NOTE | 2022-10-23 23:45 | NUR ---
Patient bladder scanned for very minute urine out put in wick canister. Only 265cc at this time. Will continue to monitor.
[2022-10-24 03:05] VITALS: O2SAT 92
--- NOTE | 2022-10-24 04:30 | NUR ---
Total of 250cc in wick cannister at this time. Patient also has had a large incontinent. Bladder scan reveals 190 cc retention.
[2022-10-24] MEDS: hydrALAZINE 20mg/ml inj. IV PRN (04:35)
[2022-10-24 04:36] VITALS: BP 169/89; PULSE 93
--- NOTE | 2022-10-24 04:40 | NUR ---
Early am VS showed elevated BP 169/83. Hydralazine given at this time.
[2022-10-24] MEDS: acetaminophen 325mg tablet PO PRN ×2 (05:27→14:08)
[2022-10-24] MEDS: normal saline 1000ml 1,000 ML IV SCH (06:07)
--- NOTE | 2022-10-24 06:20 | NUR ---
Problems reprioritized. Patient report given, questions answered & plan of care reviewed with Holly Araujo.
[2022-10-24 06:46] VITALS: BP 169/89; PULSE 75; RESP 14; TEMP 97.9; O2SAT 98
[2022-10-24 07:42] LABS: BASOPHILS % (AUTO) 0.3 % (0-1); EOSINOPHILS % (AUTO) 0.4 % (0-6); HEMATOCRIT 34.1 % (35.0-45.0); HEMOGLOBIN 11.2 g/dl (12.0-16.0); LYMPHOCYTES # (AUTO) 0.7 X10'3 (1.1-4.8); MEAN CORPUSCULAR HEMOGLOBIN 27.9 PG (27.0-31.0); MEAN CORPUSCULAR HGB CONC 32.9 g/dL (33.0-36.5); MEAN CORPUSCULAR VOLUME 84.8 FL (78-98); MONOCYTES # (AUTO) 0.7 X10'3 (0-0.9); MONOCYTES % (AUTO) 10.4 % (2-12); NEUTROPHILS # (AUTO) 5.3 X10'3 (1.8-7.7); NEUTROPHILS % (AUTO) 78.9 % (42-75); PLATELET COUNT 155 X10'3 (140-440); RED BLOOD COUNT 4.02 X10'6 (4.20-5.60); RED CELL DISTRIBUTION WIDTH 16.4 % (11.5-14.5); WHITE BLOOD COUNT 6.8 X10'3 (4.5-11.0)
[2022-10-24 07:59] LABS: ALANINE AMINOTRANSFERASE 24 U/L (12-78); ALBUMIN 2.3 G/DL (3.4-5.0); ALBUMIN/GLOBULIN RATIO 0.7 (1.1-1.5); ALKALINE PHOSPHATASE 81 IU/L (46-116); ANION GAP 10 (8-16); ASPARTATE AMINO TRANSFERASE 29 U/L (10-37); BILIRUBIN,TOTAL 0.4 MG/DL (0.1-1.0); BLOOD UREA NITROGEN 15 MG/DL (7-18); BUN/CREATININE RATIO 22.7 (10.0-20.0); CHLORIDE 106 MMOL/L (99-107); CREATININE 0.66 MG/DL (0.40-0.90); GLUCOSE 98 MG/DL (70-104); SODIUM 137 MMOL/L (135-145); TOTAL CARBON DIOXIDE 20.6 MMOL/L (24-32); TOTAL PROTEIN 5.5 G/DL (6.4-8.2); eCRCL 64 ML/MIN; eGFR 88 ML/MIN
[2022-10-24] MEDS ORDERED: metoprolol succinate 25mg (24-HOUR) SR. Tablet PO SCH (08:00)
[2022-10-24] MEDS: CefTRIAXone 2gm/D5W 50ml BAG 50 ML IV SCH (08:25)
[2022-10-24 08:33] LABS: POTASSIUM 2.9 MMOL/L (3.5-5.1)
[2022-10-24] MEDS ORDERED: potassium Cl 20 mEq SR tablet PO PRN ×3 (08:45→15:05)
[2022-10-24] MEDS: atorvastatin 20mg tablet PO SCH (08:57)
[2022-10-24] MEDS: buPROPion SR 100mg tab PO SCH (08:57)
[2022-10-24] MEDS: amLODIPine 5mg tablet PO SCH (08:58)
[2022-10-24] MEDS: lisinopril 10 MG tablet PO SCH (08:59)
[2022-10-24] MEDS: venlafaxine 25mg tablet PO SCH ×2 (09:09→14:08)
[2022-10-24 10:00] VITALS: BP 119/63; PULSE 92; RESP 16; TEMP 97.9; O2SAT 93
--- NOTE | 2022-10-24 13:30 | NUR ---
I have reviewed and agree with interventions, assessments, and documentation by Holly Zapata LVN.
--- NOTE | 2022-10-24 14:26 | NUR ---
PATIENT HAD TWO LARGE VOIDS WITH [employer]ID[employer]. ALL MEDICATIONS TOLERATED. TYLENOL GIVEN FOR PAIN. PATIENT DISCHARGED TO [facility] FOR REHAB. ALL BELONGINGS LEFT WITH PATIENT AT BEDSIDE. PATIENT TRANSPORTED BY GURNEY BY [facility].
[2022-10-24] MEDS ORDERED: potassium Cl 40MEQ/1/2NS 520ml 520 ML IV PRN (15:05)
[2022-10-24] MEDS ORDERED: K and/or MAG REPLACEMENT MC SCH (20:00)
== END 2022-10-24 14:30 | DRG 689 ==
LOC: ER 13:58 → ED HOLD 16:45 → ORTHO 4S 10-21 11:15
PROVIDERS: ADMIT Internal Medicine; ATTEND Internal Medicine
DX: N39.0 Urinary tract infection, site not specified (principal); G93.41 Metabolic encephalopathy; C91.10 Chronic lymphocytic leukemia of B-cell type not having achieved remission; R47.01 Aphasia; J98.11 Atelectasis; I16.1 Hypertensive emergency; I50.32 Chronic diastolic (congestive) heart failure; E87.6 Hypokalemia; Z66 Do not resuscitate; Z96.653 Presence of artificial knee joint, bilateral; I11.0 Hypertensive heart disease with heart failure; K21.9 Gastro-esophageal reflux disease without esophagitis; F03.90 Unspecified dementia, unspecified severity, without behavioral disturbance, psychotic disturbance, mood disturbance, and anxiety; Z88.8 Allergy status to other drugs, medicaments and biological substances; Z79.899 Other long term (current) drug therapy
CPT/HCPCS: 36415; 70450; 70551; 71045; 80053; 81001; 83605; 83735; 84145; 84484; 85025; 87040; 87077; 87081; 87088; 87186; 93005; 96365; 97110; 97161; 97530; 99285; C1758; G0378; J0360; J0696; J1650; J3480; J7030